=== PATIENT | female | born 1980 | race Caucasian/White ===

== ENCOUNTER 2018-10-12 21:22 | Emergency (ER) | payer OTHER ==
[~2018-10-12] VITALS: Ht 165.1 cm; Wt 67.1 kg
[2018-10-12 21:31] VITALS: BP 124/80; Ht 165.1 cm; Wt 67.1 kg
== END 2018-10-12 23:48 | disposition home or self-care (01) ==
LOC: ED 21:22
DX: S81.011A Laceration without foreign body, right knee, initial encounter (principal); J45.909 Unspecified asthma, uncomplicated; W18.40XA Slipping, tripping and stumbling without falling, unspecified, initial encounter; Y93.89 Activity, other specified; Y92.89 Other specified places as the place of occurrence of the external cause; Y99.8 Other external cause status
CPT/HCPCS: J2001